=== PATIENT | female | born 2000 | race Caucasian/White ===

== ENCOUNTER 2023-09-11 09:50 | Day surgery (SDC) | payer BC ==
[~2023-09-11 09:50] MED LIST: LACTATED RINGERS 1,000 ML IV SCH
[2023-09-11 10:30] VITALS: TEMP 98.2
[2023-09-11] MEDS ORDERED: PROPOFOL 10 MG/ML 20 ML VIAL IV ONE (12:06)
--- NOTE | 2023-09-11 12:17 | P.PCN ---
Date of Procedure: 09/11/23 Procedure(s) Performed: BRIEF HISTORY: Patient is a 22-year-old pleasant white female scheduled for an elective colonoscopy as a part of evaluation of intermittent rectal bleeding for the last 2 years duration. She has history of chronic constipation. PROCEDURE PERFORMED: Colonoscopy. PREOPERATIVE DIAGNOSIS: Intermittent rectal bleeding and chronic constipation. IV sedation per Anesthesia. PROCEDURE: After informed consent was obtained, the patient, was brought into the endoscopy unit. IV sedation was administered by Anesthesia under continuous monitoring. Digital rectal examination was normal. Initially the Olympus CF-160 flexible video colonoscope was then inserted in the rectum, gradually advanced into the cecum without any difficulty. Careful examination was performed as the scope was gradually being withdrawn. Ileocecal valve and the appendiceal orifice were visualized and appeared normal. Prep was excellent. Normal-appearing terminal ileum. Mucosa of the cecum, ascending colon, transverse colon, descending colon, sigmoid colon, and rectum appeared normal. Retroflexion was p erformed in the rectum and no lesions were seen. The patient tolerated the procedure well. IMPRESSION: Normal-appearing colon from rectum to cecum with no evidence of colorectal neoplasia . RECOMMENDATIONS: Findings of this examination were discussed with the patient as well as a family. She was advised to be a high-fiber diet and take Supplements a regular basis and avoid straining and constipation..
[2023-09-11 12:38] VITALS: BP 116/78; PULSE 80; RESP 17
== END 2023-09-11 12:51 | disposition home or self-care (01) ==
LOC: ORWHC2ENDO 09:50
PROVIDERS: ATTEND Internal Medicine Gastroenterology
DX: K62.5 Hemorrhage of anus and rectum (principal); K59.09 Other constipation; J45.909 Unspecified asthma, uncomplicated; K21.9 Gastro-esophageal reflux disease without esophagitis
CPT/HCPCS: 81025; 45378; J2704